=== PATIENT | male | born 1980 | race Caucasian/White ===

== ENCOUNTER 2017-04-17 19:19 | Observation (INO) | payer BC ==
[~2017-04-17] VITALS: Ht 175.3 cm; Wt 121.2 kg
[2017-04-17 20:32] LABS: HEMATOCRIT 45.2 % (38.0-50.0); MCH 27.8 PG (29.0-34.0); MCHC 33.4 G/DL (30.0-36.0); MCV 83.1 FL (86-99); MEAN PLAT.VOLUME 11.4 uM^3 (9.0-12.4); PLATELET COUNT 243 K/uL (156-360); RBC DIS.WIDTH-CV 12.1 % (11.8-14.6); RBC DIS.WIDTH-SD 36.6 % (39-53); RED BLOOD COUNT 5.44 M/uL (4.00-5.50); WHITE BLOOD COUNT 10.3 K/uL (4.1-10.2)
[2017-04-17 20:40] LABS: CHLORIDE 102 mEq/L (99-109)
[2017-04-17 20:41] LABS: POTASSIUM 4.1 mEq/L (3.7-5.4); SODIUM 139 mEq/L (136-147)
[2017-04-17 20:42] LABS: GLUCOSE 86 mg/dL (70-99)
[2017-04-17 20:44] LABS: ANION GAP 13 MEQ/L (2-14)
[2017-04-17 20:46] LABS: GFR ESTIMATE (CALCULATED) > 59 mL/min/
[2017-04-17 20:47] LABS: UREA NITROGEN (BUN) 12 mg/dL (9-23)
[2017-04-17 20:55] LABS: TROP-I INTERPRETATION NEGATIVE; TROPONIN-I < 0.01 ng/mL (0.0-0.30)
[2017-04-17] MEDS ORDERED: TUMS X-STR300 MG PO (21:03)
[2017-04-17] MEDS ORDERED: ADVIL,NUPRIN,M200 MG PO (21:05)
[2017-04-17] MEDS ORDERED: RANITIDINE HCL150 MG PO (21:06)
[2017-04-18 02:25] VITALS: BP 156/89
[2017-04-18 04:11] LABS: TROP-I INTERPRETATION NEGATIVE; TROPONIN-I < 0.01 ng/mL (0.0-0.30)
[2017-04-18 04:20] LABS: HDL CHOLESTEROL 27 MG/DL (Desirable>=40); LDL CHOLESTEROL 71 mg/dL (Desirable<100); NON-HDL CHOLESTEROL 121 mg/dL (Desirable<160); TOTAL CHOLESTEROL 148 mg/dL (Desirable<200); TRIGLYCERIDES 250 MG/DL (Normal: <150)
[2017-04-18 10:25] LABS: TROP-I INTERPRETATION NEGATIVE; TROPONIN-I < 0.01 ng/mL (0.0-0.30)
[2017-04-18 10:53] LABS: D-DIMER ELISA < 150.00 ng/mLDDU (<230)
[2017-04-18 12:54] VITALS: BP 130/73
[2017-04-18] MEDS ORDERED: PANTOPRAZOLE SO40 MG PO (13:05)
== END 2017-04-18 14:56 | disposition home or self-care (01) ==
LOC: EME 19:19 → EDOF 23:42 → 5WEST 23:42 → EDOF 23:42 → ENRESERV 23:47 → 5WEST 04-18 02:19
PROVIDERS: Physician Assistant
DX: R07.9 Chest pain, unspecified (principal); K21.9 Gastro-esophageal reflux disease without esophagitis; R06.02 Shortness of breath; R42 Dizziness and giddiness; R05 Cough; I70.0 Atherosclerosis of aorta; I27.20 Pulmonary hypertension, unspecified; Z82.49 Family history of ischemic heart disease and other diseases of the circulatory system; Z80.6 Family history of leukemia; Z80.3 Family history of malignant neoplasm of breast; Z87.891 Personal history of nicotine dependence; Z88.0 Allergy status to penicillin; Z88.1 Allergy status to other antibiotic agents; Z79.82 Long term (current) use of aspirin
CPT/HCPCS: 71020; 80048; 80061; 84484; 85027; 85379; 93005; 93306; 99281; 99285; G0378; J7030